=== PATIENT | male | born 1955 | race Caucasian/White ===

== ENCOUNTER 2017-12-20 15:05 | Inpatient (IN) | payer OTHER ==
[~2017-12-20] VITALS: Ht 165.1 cm; Wt 64.7 kg
[~2017-12-20 15:05] MED LIST: CALAN SR,COVER240 MG PO; CELEBREX200 MG PO; Calcium Carbonate,Ca PO; Coumadin,Jantoven PO; Feosol PO; Fish Oil PO; Lipitor PO; Potassium PO; Pyridoxine,Vitamin B PO; Senokot S,Pericolace PO; Vicodin,Norco 5/325 PO; ZESTRIL40 MG PO; Zestril,Prinivil PO
[2017-12-20] MEDS ORDERED: LIPITOR40 MG PO (15:26)
[2017-12-20] MEDS ORDERED: FISH OIL 1,0001 EAC7 PO (15:26)
[2017-12-20] MEDS ORDERED: POTASSIUM-9999 MG PO (17:52)
[2017-12-20] MEDS ORDERED: EXCEDRIN EXTRA1 EACH PO (17:52)
[2017-12-20 17:57] LABS: BASOPHIL (%) 0.4 % (0-1); BASOPHIL COUNT 0.1 K/uL (0-0.1); EOSINOPHIL (%) 0.1 % (0-5); HEMATOCRIT 34.2 % (38.0-50.0); HEMOGLOBIN 11.9 G/DL (12.5-16.6); IMMATURE GRANULOCYTE (%) 0.6 % (0.0-0.7); LYMPHOCYTE (%) 10.6 % (15-42); LYMPHOCYTE COUNT 1.4 K/uL (1.0-2.8); MCH 33.8 PG (29.0-34.0); MCHC 34.8 G/DL (30.0-36.0); MCV 97.2 FL (86-99); MONOCYTE COUNT 1.3 K/uL (0-0.8); NEUTROPHIL (%) 78.3 % (45-76); NEUTROPHIL COUNT 10.4 K/uL (1.8-6.4); PLATELET COUNT 304 K/uL (156-360); RBC DIS.WIDTH-CV 13.1 % (11.8-14.6); RBC DIS.WIDTH-SD 46.8 % (39-53); RED BLOOD COUNT 3.52 M/uL (4.00-5.50); WHITE BLOOD COUNT 13.2 K/uL (4.1-10.2)
[2017-12-20 18:02] LABS: INTER. NORMALIZED RATIO 1.1
[2017-12-20 18:04] LABS: PTT 24.4 SEC (25-37)
[2017-12-20 18:06] LABS: CHLORIDE 93 mEq/L (99-109); POTASSIUM 5.1 mEq/L (3.7-5.4); SODIUM 129 mEq/L (136-147)
[2017-12-20 18:07] LABS: GLUCOSE 105 mg/dL (70-99)
[2017-12-20 18:11] LABS: CREATININE 1.1 mg/dL (0.6-1.3); GFR ESTIMATE (CALCULATED) > 59 mL/min/ (58.99-99999)
[2017-12-20 18:12] LABS: UREA NITROGEN (BUN) 31 mg/dL (9-23)
[2017-12-20 18:18] LABS: TROP-I INTERPRETATION NEGATIVE; TROPONIN-I 0.08 ng/mL (0.0-0.30)
[2017-12-20 18:43] LABS: TOTAL CK 1391 IU/L (1-294)
[2017-12-20 18:46] LABS: CREATINE KINASE 1391 IU/L (1-294)
[2017-12-20 18:58] LABS: CK-MB 6.8 ng/mL (0.0-4.9); CKMB RELATIVE INDEX 0.5 (0.0-3.9)
[2017-12-20 22:41] VITALS: BP 145/85
[2017-12-20 23:25] LABS: TROP-I INTERPRETATION NEGATIVE; TROPONIN-I 0.07 ng/mL (0.0-0.30)
[2017-12-21 00:15] VITALS: BP 121/66
[2017-12-21 02:13] LABS: APPEARANCE SL.HAZY ((CLEAR)); BILIRUBIN NEGATIVE; BLOOD NEGATIVE; COLOR YELLOW ((YELLOW)); GLUCOSE (STRIP) NEGATIVE; KETONES 5; LEUKOCYTES NEGATIVE; NITRITE NEGATIVE; PROTEIN (STRIP) NEGATIVE; SPECIFIC GRAVITY 1.025 (1.000-1.030); UROBILINOGEN 0.2 MG/DL (0.2-1.0)
[2017-12-21 02:20] LABS: BACTERIA NONE SEEN /HPF; EPITHELIAL CELLS NONE SEEN /HPF; MUCUS 1+ /LPF; UCUL ADDED? NO; WHITE BLOOD CELLS 0-5 /HPF (0-5)
[2017-12-21 04:10] VITALS: BP 125/65
[2017-12-21 06:08] LABS: HEMATOCRIT 26.6 % (38.0-50.0); MCH 34.5 PG (29.0-34.0); MCHC 34.6 G/DL (30.0-36.0); MCV 99.6 FL (86-99); RBC DIS.WIDTH-CV 13.2 % (11.8-14.6); RBC DIS.WIDTH-SD 47.8 % (39-53); WHITE BLOOD COUNT 5.5 K/uL (4.1-10.2)
[2017-12-21 06:10] LABS: HEMOGLOBIN 9.2 G/DL (12.5-16.6); RED BLOOD COUNT 2.67 M/uL (4.00-5.50)
[2017-12-21 06:19] LABS: TROP-I INTERPRETATION NEGATIVE
[2017-12-21 06:42] LABS: CHLORIDE 100 MEQ/L (99-109); CREATININE 0.9 MG/DL (0.6-1.3); GFR ESTIMATE (CALCULATED) > 59 mL/min/ (58.99-99999); GLUCOSE 91 mg/dL (70-99); SODIUM 129 MEQ/L (136-147); UREA NITROGEN (BUN) 22 mg/dL (9-23)
[2017-12-21 06:43] LABS: ALKALINE PHOSPHATASE 21 IU/L (3-129); ALT (GPT) 19 IU/L (3-49); AST (GOT) 55 IU/L (2-34); TOTAL BILIRUBIN 0.6 MG/DL (0.0-1.0)
[2017-12-21 06:45] LABS: CREATINE KINASE 994 IU/L (1-294); TOTAL CK 994 IU/L (1-294)
[2017-12-21 06:50] LABS: POTASSIUM 3.8 MEQ/L (3.7-5.4)
[2017-12-21 06:54] LABS: PLAT.SUFFICIENCY ADEQUATE
[2017-12-21 06:55] LABS: PLATELET COUNT 194 K/uL (156-360)
[2017-12-21 07:13] LABS: CKMB RELATIVE INDEX 0.5 (0.0-3.9)
[2017-12-21 07:23] LABS: CK-MB 5.4 ng/mL (0.0-4.9)
[2017-12-21 07:33] VITALS: BP 111/71
[2017-12-21 10:20] VITALS: BP 121/76
[2017-12-21 11:29] LABS: MAGNESIUM 1.9 mg/dl (1.3-2.7)
[2017-12-21 11:47] LABS: HDL CHOLESTEROL 69 MG/DL (Desirable>=40); LDL CHOLESTEROL 75 mg/dL (Desirable<100); NON-HDL CHOLESTEROL 96 mg/dL (Desirable<160); TOTAL CHOLESTEROL 165 mg/dL (Desirable<200); TRIGLYCERIDES 107 MG/DL (Normal: <150)
[2017-12-21 12:32] LABS: CHLORIDE 98 MEQ/L (99-109); SODIUM 129 MEQ/L (136-147)
[2017-12-21 12:38] LABS: CREATININE 0.8 MG/DL (0.6-1.3); GFR ESTIMATE (CALCULATED) > 59 mL/min/ (58.99-99999); GLUCOSE 111 mg/dL (70-99); UREA NITROGEN (BUN) 18 mg/dL (9-23)
[2017-12-21 15:34] LABS: SERUM ETHYL ALCOHOL < 10 mg/dL
[2017-12-21 15:38] VITALS: BP 123/79
[2017-12-21 16:09] LABS: HEMATOCRIT 26.7 % (38.0-50.0); MCH 34.2 PG (29.0-34.0); MCHC 33.7 G/DL (30.0-36.0); MCV 101.5 FL (86-99); PLATELET COUNT 206 K/uL (156-360); RBC DIS.WIDTH-CV 13.2 % (11.8-14.6); RBC DIS.WIDTH-SD 48.4 % (39-53); RED BLOOD COUNT 2.63 M/uL (4.00-5.50); WHITE BLOOD COUNT 6.2 K/uL (4.1-10.2)
[2017-12-21 16:14] LABS: BENZODIAZEPINES, URINE SCREEN Negative (200 ng/mL)
[2017-12-21 16:48] LABS: ALBUMIN 3.2 G/DL (3.2-4.8); ALKALINE PHOSPHATASE 25 IU/L (3-129); ALT (GPT) 22 IU/L (3-49); AST (GOT) 57 IU/L (2-34); CHLORIDE 98 MEQ/L (99-109); CREATINE KINASE 824 IU/L (1-294); GFR ESTIMATE (CALCULATED) > 59 mL/min/ (58.99-99999); GLUCOSE 99 mg/dL (70-99); IRON 23 MCG/DL (35-150); MAGNESIUM 1.9 mg/dl (1.3-2.7); PHOSPHORUS 2.7 mg/dL (2.5-4.9); POTASSIUM 3.7 MEQ/L (3.7-5.4); SODIUM 130 MEQ/L (136-147); TOTAL BILIRUBIN 0.6 MG/DL (0.0-1.0); TOTAL PROTEIN 5.3 G/DL (6.4-8.3); TRANSFERRIN (TIBC) 190.3 mg/dL (215-380); TRANSFERRIN SATUR. 12 % (20-55); UREA NITROGEN (BUN) 17 mg/dL (9-23)
[2017-12-21 17:06] LABS: FERRITIN 288 NG/ML (22-322)
[2017-12-21 17:10] LABS: FOLIC ACID (FOLATE) 12.6 NG/ML (5.0-22.0)
[2017-12-21 17:20] LABS: THYROTROPIN (TSH) 0.84 MIU/L (0.4-5.5)
[2017-12-21 19:32] VITALS: BP 134/65
[2017-12-22 00:02] VITALS: BP 137/74
[2017-12-22 04:14] VITALS: BP 144/80
[2017-12-22 04:47] LABS: HEMATOCRIT 24.2 % (38.0-50.0); HEMOGLOBIN 8.5 G/DL (12.5-16.6); MCHC 35.1 G/DL (30.0-36.0); MCV 99.6 FL (86-99); PLATELET COUNT 174 K/uL (156-360); RBC DIS.WIDTH-CV 13.2 % (11.8-14.6); RED BLOOD COUNT 2.43 M/uL (4.00-5.50); WHITE BLOOD COUNT 4.9 K/uL (4.1-10.2)
[2017-12-22 04:58] LABS: POTASSIUM 3.8 mEq/L (3.7-5.4); SODIUM 134 mEq/L (136-147)
[2017-12-22 04:59] LABS: MAGNESIUM 1.6 mg/dL (1.3-2.7)
[2017-12-22 05:00] LABS: GLUCOSE 91 mg/dL (70-99)
[2017-12-22 05:04] LABS: CREATININE 0.8 mg/dL (0.6-1.3); GFR ESTIMATE (CALCULATED) > 59 mL/min/ (58.99-99999); PHOSPHORUS 3.5 mg/dL (2.5-4.9)
[2017-12-22 05:05] LABS: UREA NITROGEN (BUN) 16 mg/dL (9-23)
[2017-12-22 05:07] LABS: URIC ACID 5.3 mg/dL (3.1-9.2)
[2017-12-22 05:10] LABS: CHLORIDE 106 mEq/L (99-109)
[2017-12-22 08:11] VITALS: BP 123/74
[2017-12-22 08:16] LABS: CREATINE KINASE 534 IU/L (1-294)
[2017-12-22 11:18] VITALS: BP 116/69
[2017-12-22 20:56] VITALS: BP 140/70
[2017-12-22 23:49] VITALS: BP 147/81
[2017-12-23 04:32] VITALS: BP 141/72
[2017-12-23 05:12] LABS: BASOPHIL (%) 0.5 % (0-1); EOSINOPHIL (%) 0.3 % (0-5); HEMATOCRIT 24.3 % (38.0-50.0); HEMOGLOBIN 8.2 G/DL (12.5-16.6); IMMATURE GRANULOCYTE (%) 0.4 % (0.0-0.7); LYMPHOCYTE (%) 5.6 % (15-42); LYMPHOCYTE COUNT 0.4 K/uL (1.0-2.8); MCH 32.8 PG (29.0-34.0); MCHC 33.7 G/DL (30.0-36.0); MCV 97.2 FL (86-99); MONOCYTE (%) 11.2 % (3-12); MONOCYTE COUNT 0.9 K/uL (0-0.8); NEUTROPHIL COUNT 6.4 K/uL (1.8-6.4); PLATELET COUNT 197 K/uL (156-360); RBC DIS.WIDTH-CV 15.7 % (11.8-14.6); RBC DIS.WIDTH-SD 55.8 % (39-53); WHITE BLOOD COUNT 7.8 K/uL (4.1-10.2)
[2017-12-23 06:11] LABS: ALBUMIN 2.7 G/DL (3.2-4.8); ALKALINE PHOSPHATASE 20 IU/L (3-129); ALT (GPT) 14 IU/L (3-49); AST (GOT) 46 IU/L (2-34); CHLORIDE 100 MEQ/L (99-109); CREATININE 0.7 MG/DL (0.6-1.3); GFR ESTIMATE (CALCULATED) > 59 mL/min/ (58.99-99999); GLUCOSE 112 mg/dL (70-99); POTASSIUM 3.5 MEQ/L (3.7-5.4); SODIUM 130 MEQ/L (136-147); UREA NITROGEN (BUN) 11 mg/dL (9-23)
[2017-12-23 06:33] LABS: CREATINE KINASE 1162 IU/L (1-294); TOTAL BILIRUBIN 0.9 MG/DL (0.0-1.0); TOTAL PROTEIN 4.3 G/DL (6.4-8.3)
[2017-12-23 07:39] VITALS: BP 145/73
[2017-12-23 09:12] LABS: TROP-I INTERPRETATION NEGATIVE; TROPONIN-I 0.06 ng/mL (0.0-0.30)
[2017-12-23 10:02] LABS: THYROTROPIN (TSH) 0.27 MIU/L (0.4-5.5)
[2017-12-23 11:08] VITALS: BP 146/68
[2017-12-23 15:21] VITALS: BP 139/68
[2017-12-23 15:42] LABS: CHLORIDE 99 MEQ/L (99-109); CREATININE 0.8 MG/DL (0.6-1.3); GFR ESTIMATE (CALCULATED) > 59 mL/min/ (58.99-99999); GLUCOSE 105 mg/dL (70-99); POTASSIUM 3.8 MEQ/L (3.7-5.4); SODIUM 131 MEQ/L (136-147); UREA NITROGEN (BUN) 14 mg/dL (9-23)
[2017-12-23 17:50] LABS: CREATINE KINASE 1298 IU/L (1-294)
[2017-12-23 19:40] VITALS: BP 101/56
[2017-12-23 23:40] VITALS: BP 95/60
[2017-12-24 03:47] VITALS: BP 104/58
[2017-12-24 07:33] LABS: ALBUMIN 2.4 G/DL (3.2-4.8); ALKALINE PHOSPHATASE 23 IU/L (3-129); ALT (GPT) 15 IU/L (3-49); AST (GOT) 50 IU/L (2-34); CHLORIDE 97 MEQ/L (99-109); CREATINE KINASE 873 IU/L (1-294); CREATININE 0.8 MG/DL (0.6-1.3); GFR ESTIMATE (CALCULATED) > 59 mL/min/ (58.99-99999); GLUCOSE 103 mg/dL (70-99); POTASSIUM 4.1 MEQ/L (3.7-5.4); SODIUM 131 MEQ/L (136-147); TOTAL BILIRUBIN 0.9 MG/DL (0.0-1.0); UREA NITROGEN (BUN) 16 mg/dL (9-23)
[2017-12-24 08:09] VITALS: BP 102/60
[2017-12-24 11:26] VITALS: BP 117/61
[2017-12-24 15:46] VITALS: BP 110/60
[2017-12-24 19:27] VITALS: BP 92/57
[2017-12-24 23:19] VITALS: BP 103/56
[2017-12-25] VITALS (8 sets, daily range): BP systolic 93–174; BP diastolic 50–78
[2017-12-25 07:09] LABS: BASOPHIL (%) 0.2 % (0-1); EOSINOPHIL (%) 1.2 % (0-5); EOSINOPHIL COUNT 0.1 K/uL (0-0.3); HEMATOCRIT 20.9 % (38.0-50.0); HEMOGLOBIN 7.1 G/DL (12.5-16.6); IMMATURE GRANULOCYTE (%) 0.6 % (0.0-0.7); LYMPHOCYTE (%) 8.9 % (15-42); LYMPHOCYTE COUNT 0.7 K/uL (1.0-2.8); MCV 97.2 FL (86-99); MONOCYTE (%) 10.7 % (3-12); MONOCYTE COUNT 0.9 K/uL (0-0.8); NEUTROPHIL (%) 78.4 % (45-76); NEUTROPHIL COUNT 6.4 K/uL (1.8-6.4); PLATELET COUNT 198 K/uL (156-360); RBC DIS.WIDTH-CV 14.9 % (11.8-14.6); RBC DIS.WIDTH-SD 52.8 % (39-53); RED BLOOD COUNT 2.15 M/uL (4.00-5.50); WHITE BLOOD COUNT 8.2 K/uL (4.1-10.2)
[2017-12-25 08:00] LABS: ALBUMIN 2.1 G/DL (3.2-4.8); ALKALINE PHOSPHATASE 25 IU/L (3-129); ALT (GPT) 12 IU/L (3-49); AST (GOT) 34 IU/L (2-34); CHLORIDE 101 MEQ/L (99-109); CREATINE KINASE 476 IU/L (1-294); CREATININE 0.6 MG/DL (0.6-1.3); GFR ESTIMATE (CALCULATED) > 59 mL/min/ (58.99-99999); GLUCOSE 96 mg/dL (70-99); POTASSIUM 3.7 MEQ/L (3.7-5.4); SODIUM 131 MEQ/L (136-147); TOTAL PROTEIN 3.8 G/DL (6.4-8.3); UREA NITROGEN (BUN) 20 mg/dL (9-23)
[2017-12-25 08:20] LABS: TOTAL BILIRUBIN 0.7 MG/DL (0.0-1.0)
[2017-12-25 11:21] LABS: APPEARANCE CLEAR ((CLEAR)); BILIRUBIN NEGATIVE; BLOOD NEGATIVE; COLOR YELLOW ((YELLOW)); GLUCOSE (STRIP) NEGATIVE; KETONES NEGATIVE; LEUKOCYTES NEGATIVE; NITRITE NEGATIVE; PROTEIN (STRIP) NEGATIVE; UCUL ADDED? NO; UROBILINOGEN 0.2 MG/DL (0.2-1.0)
[2017-12-26] VITALS (14 sets, daily range): BP systolic 93–115; BP diastolic 54–67
[2017-12-26 05:45] LABS: HEMATOCRIT 20.7 % (38.0-50.0); MCV 98.1 FL (86-99)
[2017-12-26 05:47] LABS: HEMOGLOBIN 6.8 G/DL (12.5-16.6)
[2017-12-26 09:31] LABS: ALBUMIN 2.3 G/DL (3.2-4.8); ALKALINE PHOSPHATASE 30 IU/L (3-129); ALT (GPT) 18 IU/L (3-49); AST (GOT) 37 IU/L (2-34); CHLORIDE 99 MEQ/L (99-109); CREATINE KINASE 342 IU/L (1-294); CREATININE 0.6 MG/DL (0.6-1.3); GFR ESTIMATE (CALCULATED) > 59 mL/min/ (58.99-99999); GLUCOSE 111 mg/dL (70-99); POTASSIUM 3.8 MEQ/L (3.7-5.4); SODIUM 131 MEQ/L (136-147); TOTAL BILIRUBIN 0.8 MG/DL (0.0-1.0); UREA NITROGEN (BUN) 19 mg/dL (9-23)
[2017-12-26] MEDS ORDERED: FOLIC ACID1 MG PO (16:50)
[2017-12-26] MEDS ORDERED: Thiamine,Vitamin B1 PO (16:50)
== END 2017-12-26 21:59 | DRG 481 ==
LOC: EME 15:05 → EDOF 20:28 → 3EAST 20:28 → ENRESERV 20:31 → CANRESERV 21:19 → ENRESERV 21:19 → 3EAST 22:13
PROVIDERS: Emergency Medicine; Internal Medicine; Internal Medicine Nephrology; Orthopaedic Surgery
DX: S72.391A Other fracture of shaft of right femur, initial encounter for closed fracture (principal); M97.01XA Periprosthetic fracture around internal prosthetic right hip joint, initial encounter; W01.0XXA Fall on same level from slipping, tripping and stumbling without subsequent striking against object, initial encounter; M62.82 Rhabdomyolysis; E46 Unspecified protein-calorie malnutrition; E87.1 Hypo-osmolality and hyponatremia; D75.89 Other specified diseases of blood and blood-forming organs; D62 Acute posthemorrhagic anemia; N28.9 Disorder of kidney and ureter, unspecified; I10 Essential (primary) hypertension; E78.5 Hyperlipidemia, unspecified; F10.11 Alcohol abuse, in remission; Y90.0 Blood alcohol level of less than 20 mg/100 ml; Y92.000 Kitchen of unspecified non-institutional (private) residence as the place of occurrence of the external cause
CPT/HCPCS: 71045; 73502; 76000; 80048; 80048 91; 80053; 80061; 80306 90; 81003; 82330; 82533 91; 82550; 82550 91; 82553; 82607; 82728; 82746; 83540; 83735; 83930; 83935; 84100; 84300; 84443; 84466; 84484; 84550; 85014; 85018; 85025; 85027; 85610; 85730; 86850; 86900; 86901; 86920; 93005; 94799; 97530 GP; 99281; 99285; A6214; C1713; G0480; J0330; J0690; J1170; J1644; J1650; J2175; J2250; J2270; J2405; J2710; J2765; J3010; J7030; P9016; P9045